=== PATIENT | male | born 1945 | race Caucasian/White ===

== ENCOUNTER → 2017-11-29 13:11 | Outpatient (CLI) | payer MEDICARE | END | disposition home or self-care (01) | LOC: D.RT 11-23 09:00 → D.RAD 11-23 10:00 → D.RT 13:11 | DX: J44.9 Chronic obstructive pulmonary disease, unspecified (principal) ==

== ENCOUNTER 2018-09-12 12:51 | Inpatient (IN) | payer MEDICARE, OTHER ==
[~2018-09-12] VITALS: Ht 165.1 cm; Wt 58.2 kg
[2018-09-12] VITALS (40 sets, daily range): BP systolic 89–139; BP diastolic 55–94
--- NOTE | ~2018-09-12 | MORECARE ---
CASE MANAGEMENT DISCHARGE SUMMARY PATIENT: KRISTIN CANELA UNIT: [id number] ADM DATE: 09/12/18 AGE: 73 : 46 SEX: M ROOM/BED: D.2065 AUTHOR: HANNY,DOC PHYSICIAN: REFERRING PHYSICIAN: TESHA MCDONOUGH MD DATE OF SERVICE: 09/23/18 Discharge Plan Patient Name: KRISTIN CANELA Facility: [facility]:[place] : 1945 Planned Disposition: Home Anticipated Discharge Date: Discharge Date: Expected LOS: Initial Reviewer: [id number] Initial Review Date: 09/12/2018 Generated: 09/23/18 11:28 am Comments DCP- Discharge Planning Updated by [email or web address]: Abad Mckay on 09/23/18 9:[address] Patient Name: KRISTIN CANELA Encounter No: [id number] : 1945 Primary Insurance: [employer] Anticipated DC Date: Planned Disposition: [facility] TRANSFER External Planned Provider: [facility] DISCHARGE PLANNING NOTE: CM REVIEWED CHART WHICH INDICATES PT IS [facility] PT, THERE ARE NOT NOTES THAT THE HOSPITAL HAS NOTIFIED THE [place] TO PLACE PT ON TRANSFER LIST. CM MET WITH PT IN ROOM TO DISCUSS DISCHARGE PLANNING AND NEEDS. PT REPORTS LIVING AT HOME INDEPENDENTLY WITH HIS EX WHO IS THERE "MOST OF THE TIME". PT HAS HOME AND PORTABLE OXGYEN AND MANUAL WHEELCHAIR FROM THE [place]. PT HAS NO OUTSIDE SERVICES ASSISTING IN THE HOME. CM DISCUSSED AVAILABILITY OF HOME HEALTH, REHAB SERVICES AND MEDICAL EQUIPMENT. PT DENIES DISCHARGE NEEDS, PLANS TO RETURN HOME WITH EX ; PT REPORTS IF HE NEEDS ASSISTANCE, HIS DAUGHTER LIVES ABOUT 3 1/2 MILES AWAY FROM HIS HOME OUTSIDE [place]. PT REPORTS HIS FAMILY WILL PICK HIM UP FOR DISCHARGE HOME. PT DOES NOT KNOW IF HE IS ON THE TRANSFER LIST, REPORTS HE JUST NOW KNOWS HE IS IN A HOSPITAL. PT REPORTS HE DOES NOT KNOW WHY THIS IS HAPPENING, HE QUIT SMOKING 4 1/2 YEARS AGO AND DOES NOT DRINK ALCOHOL EITHER. PT IS WILLING FOR TRANSFER TO THE [place] [facility] IF NEEDED. CM CALLED [facility] [place], SPOKE TO SASKIA JONES AT [phone] WHO INFORMED CM THAT PT'S CALLED TO NOTIFY [place] OF PT'S ADMISSION BUT SHE HAS NO NOTES INDICATING THE HOSPITAL CALLED. PT PLACED ON TRANSFER LIST. [facility] ON [facility] AND [facility] CONTACT [facility] 2 IF BED BECOMES AVAILABLE AT [place]. IF PT BECOMES STABLE FOR DISCHARGE PRIOR TO VA ACCEPTANCE, PT PLANS TO DISCHARGE HOME WITH FAMILY ASSISTANCE. CM TO CONTINUE TO FOLLOW AND ASSIST NEEDED. Abad Mckay, CASE MANAGEMENT DCPIA - Discharge Planning Initial Assessment Updated by [email or web address]: Abad Mckay on 09/23/18 10:11 am * Is the patient Alert and Oriented? Yes * How many steps to enter\\exit or inside your home? NONE * PCP [facility] [place] * Pharmacy [place] [facility] ORDER REPORTS NO LOCAL PHARMACY USE * Preadmission Environment Home with Family * ADLs Independent * Equipment Oxygen Wheelchair * Other Equipment [employer] - MEDICAL EQUIPMENT PROVIDER * List name and contact numbers for known caregivers / representatives who currently or will assist patient after discharge: ARIADNA CANELA, EX SPOUSE, LENNY CANELA, DTR, * Verbal permission to speak to the caregivers and representatives has been obtained from the patient. Yes * Community resources currently utilized None * Please name any agencies selected above. NONE * Additional services required to return to the preadmission environment? No * Can the patient safely return to the preadmission environment? Yes * Has this patient been hospitalized within the prior 30 days at any hospital? No Last DP export: 09/23/18 9:13 Patient Name: KRISTIN CANELA Page 50889 at 1028 All edits/amendments must be made on the electronic document DICTATION DATE: 09/23/18 1028 TUNNEL MINER: KOFFI 09/23/18 1028 RPT#: [id number] DC DATE: STATUS: ADM IN [facility] [address] [place] [address] END OF REPORT
--- NOTE | ~2018-09-12 | EC ---
PATIENT:KRISTIN CANELA DATE OF SERVICE: 09/12/18 SEX: M MEDICAL RECORD: [id number] DATE OF : [birth year] LOCATION:[facility] AGE OF PATIENT: 72 ADMISSION DATE: 09/12/18 REFERRING PHYSICIAN: INTERPRETING PHYSICIAN: SADA GRANT MD ECHOCARDIOGRAM REPORT ECHO CHARGES 5 ECHO LIMITED Date: 09/13/18 CLINICAL DIAGNOSIS: RESP DISTRESS, ASSESS EF ECHOCARDIOGRAPHIC MEASUREMENTS (adult normal given) AC root (d.<3.7cm) cm LV Septum d (<1.2 cm> cm Valve Excursion cm LV Septum (systole) cm Left Atria (s.<4.0cm> cm LVPW d(<1.2cm) cm RV (d.<2.3cm) cm LVPW (sytole) cm LV diastole(<5.6CM) 5.0 cm MV E-F(>70mm/sec) cm LV systole 3.0 cm LVOT Diameter cm MV exc.(>10mm) cm Est.ejection fraction (50-75%) % DOPPLER: LVIT cm/sec A cm/sec E cm/sec LA cm/sec RVSP 18 mmHg LVOT cm/sec AOP1/2T m/s Asc. Ao cm/sec RVOT cm/sec RA cm/sec PA cm/sec AV Gradient Peak mmHg AV Mean mmHg AV Area cm MV Gradient Peak mmHg MV Mean mmHg MV Area cm COMMENTS: Counseling Program Leader: Catrina ZHENG Hearing Therapy Director: 1 Dr. Grant TAPE# PACS Pericardial Effusion N DATE OF SERVICE: 09/13/2018 PROCEDURE: Limited echo for ejection fraction. FINDINGS: Left ventricular chamber size is within normal limits. Left ventricular systolic function is normal. Overall ejection fraction estimated at 60%. TRANSINT:[id number] Voice Confirmation ID: [id number] DOCUMENT ID: [id number] ECHOCARDIOGRAM REPORT [id number] HILTONSADA JACOBSON MD at 1059 CC: [id number] DICTATION DATE: 09/13/18 1241 ARTILLERY OFFICER: 09/13/18 1248 [place] [address]
--- NOTE | ~2018-09-12 | MORECARE ---
CASE MANAGEMENT DISCHARGE SUMMARY PATIENT: KRISTIN CANELA UNIT: [id number] ADM DATE: 09/12/18 AGE: 73 : 47 SEX: M ROOM/BED: D.2139 AUTHOR: CHIKI GAMINO PHYSICIAN: REFERRING PHYSICIAN: TESHA MCDONOUGH MD DATE OF SERVICE: 09/23/18 Discharge Plan Patient Name: KRISTIN CANELA [facility] [facility] 1945 Planned Disposition: Home Anticipated Discharge Date: Discharge Date: Expected LOS: Initial Reviewer: [email or web address] Initial Review Date: 09/12/2018 Generated: 09/23/18 11:13 am DCPIA - Discharge Planning Initial Assessment Updated by [email or web address]: Abad Mckay on 09/23/18 10:11 am * Is the patient Alert and Oriented? Yes * How many steps to enter\exit or inside your home? NONE * PCP [facility] [place] * Pharmacy [place] REPOR[place] NO LOCAL PHARMACY USE * Preadmission Environment Home with Family * ADLs Independent * Equipment Oxygen Wheelchair * Other Equipment [employer] - MEDICAL EQUIPMENT PROVIDER * List name and contact numbers for known caregivers / representatives who currently or will assist patient after discharge: ARIADNA CANELA, EX SPOUSE, LENNY HILTON, DTR, * Verbal permission to speak to the caregivers and representatives has been obtained from the patient. Yes * Community resources currently utilized None * Please name any agencies selected above. NONE * Additional services required to return to the preadmission environment? No * Can the patient safely return to the preadmission environment? Yes * Has this patient been hospitalized within the prior 30 days at any hospital? No Last DP export: 09/23/18 9:00 Patient Name: KRISTIN CANELA Page 62131 at 1013 All edits/amendments must be made on the electronic document DICTATION DATE: 09/23/18 1013 SR. SOCIAL MEDIA & MOBILE MANAGER: KOFFI 09/23/18 1013 RPT#: [id number] DC DATE: STATUS: ADM IN [facility] [address] [place] [address] END OF REPORT
--- NOTE | ~2018-09-12 | HEMODYNAMI ---
PATIENT:KRISTIN CANELA MEDICAL RECORD: [id number] : [birth year] LOCATION:[facility] D.231 ADMISSION DATE: 09/12/18 Generatedon:09/13/201814:59 Patient name: KRISTIN CANELA Patient #: [id number] SSN: : 1945 Date of study: 09/13/2018 Page: Of Hemodynamic Procedure Report Patient Data Patient Demographics Procedure consent was obtained First Name: KRISTIN Gender: Male Last Name: HILTON : 1945 Patient #: [id number] Age: 72 year(s) Race: Unknown Additional ID: [id number] Contact details Address: [address] [place] [address] [address] State: [place] City: [place] Zip code: [address] Admission Admission Data Admission Date: 09/12/2018 Admission Time: 14:50 Room #: .[facility] [place] [facility] [place] Procedure Procedure Types Cath Procedure Peripheral Cath Diagnostic Procedure Miscellaneous Procedure Description Procedure Date Procedure Date: 09/13/2018 Procedure Start Time: 14:35 Procedure Staff Name Function Betrin Barger MD Performing Physician Ruben Suh RT Monitor Katelyn Kellogg RN Nurse Procedure Data Cath Procedure Fluoroscopy Diagnostic fluoroscopy Total fluoroscopy Time: 6.2 time: 6.2 min min Diagnostic fluoroscopy Total fluoroscopy dose: 95 dose: 95 mGy mGy Hemodynamics Rest Pre Cath Intra NCS Post Cath Procedure Log Time Note 14:10:48 Ruben Suh RT (R) (CV) sent for patient. Start room use. 14:11:08 Patient received from ICU to IR On ventilator. Tansferred to table in Supine position. 14:11:10 Correct patient and procedure confirmed by team. 14:11:13 Signed procedure consent form obtained from guardian. 14:32:02 Physician arrived 14:32:04 --------ALL STOP TIME OUT------ 14:32:21 Sedation plan: None Medication 14:35:02 Procedure started. 14:35:03 Full Disclosure recording started 14:45:56 GLIDE WIRE ANGLE 180cm ([id number]) opened to sterile field. 14:46:19 GLIDE WIRE Angled Super Stiff 180cm ([id number]) opened to sterile field. 14:58:21 Procedure ended.(Physican Out) 14:58:38 Fluoroscopy time 06.20 minutes. 14:58:44 Fluoroscopy dose: 95 mGy 14:58:44 Flurop Dose total: 95 14:59:02 Report given to ICU. 14:59:07 Patient transfered to ICU with Bed. Device Usage Item Manufacture Quantity Catalog Hospital Part Current Minimal Lot# / Name Number Charge Number Stock Stock Serial# Code GLIDE Terumo 1 [id number] WIRE ANGLE 180cm ([id number]) GLIDE Terumo 1 [id number] WIRE Angled Super Stiff 180cm ([id number]) Signature Audit [place] Stage Time Signature Unsigned Intra-Procedure 09/13/2018 Ruben 2:59:39 PM Vikash RT (R) (CV) Signatures Monitor : Ruben Signature : Vikash RT Date : Time : [address] [place] [address]
--- NOTE | ~2018-09-12 | MORECARE ---
CASE MANAGEMENT DISCHARGE SUMMARY PATIENT: KRISTIN CANELA UNIT: [id number] ADM DATE: 09/12/18 AGE: 73 : 46 SEX: M ROOM/BED: D.7325 AUTHOR: HANNYDOC PHYSICIAN: REFERRING PHYSICIAN: TESHA MCDONOUGH MD DATE OF SERVICE: 09/28/18 Discharge Plan Patient Name: KRISTIN CANELA Facility: [facility]:[place] : 1945 Planned Disposition: Home Anticipated Discharge Date: 09/28/18 Discharge Date: Expected LOS: 16 Initial Reviewer: [email or web address] Initial Review Date: 09/12/2018 Generated: 09/28/18 5:05 pm Comments DCP- Discharge Planning Updated by [email or web address]: Abad Mckay on 09/28/18 3:[address] Patient Name: KRISTIN CANELA Encounter No: [id number] : 1945 Primary Insurance: [employer] Anticipated DC Date: 09-28-2018 Planned Disposition: Home DCP follow-up note: CM RECEIVED MESSAGE FROM BEDSIDE NURSE THAT PT IS REFUSING TO DISCHARGE AND INFORMED THE DOCTOR THAT HE WANTS REHAB BEFORE GOING HOME. CM CALLED [facility], , WHICH RANG TO [facility] [place]. CM PROVIDED REQUEST FOR REHAB SERVICES, NOTIFIED [place] THAT PT NO LONGER NEEDED MEDICAL BED HE IS STABLE FOR TRANSFER. MASTER ELECTRICIAN INFORMED CM THAT SHE SENT A MESSAGE TO THE NURSE AT [facility] WITH REHAB REQUEST. CM MET WITH PT IN ROOM, NOTIFIED OF ABOVE. PT STATES HE IS NOT GOING TO [place] FOR REHAB SERVICES WITH [place] AND THAT HE WANTS TO GO HOME BUT NOT TONIGHT. CM EXPLAINED THAT CM IS NOT SURE WHERE THE SERVICES FOR REHAB WOULD BE PROVIDED AND THAT CM IS WAITING FOR CALL FROM THE REHAB. PT [facility]. PT NOT ABLE TO GIVE CM REASON OTHER THAN HE JUST DOESN'T FEEL GOOD AND STATES AGAIN HE IS NOT GOING TO REHAB IN [place] AND WILL GO HOME TOMORROW. PT REPORTS HIS WILL PICK HIM UP TOMORROW AND HE DOES NOT WANT CM TO TELL HER THAT HE REFUSED TO GO TO [place]. PT REFUSES REHAB SERVICES PROVIDED BY [place] IN [place], STATES HE WILL GO HOME TOMORROW, 09-29-18 AND THAT HIS WILL PICK HIM UP. STEPH Urias MANAGEMENT DCP- Discharge Planning Updated by [id number]: Abad Mckay on 09/23/18 9:[address] Patient Name: KRISTIN CANELA Encounter No: [id number] : 1945 Primary Insurance: [employer] Anticipated DC Date: Planned Disposition: ACUTE CARE HOSPITAL TRANSFER External Planned Provider: [facility] DISCHARGE PLANNING NOTE: CM REVIEWED CHART WHICH INDICATES PT IS [facility] PT, THERE ARE NOT NOTES THAT THE HOSPITAL HAS NOTIFIED THE [facility] TO PLACE PT ON TRANSFER LIST. CM MET WITH PT IN ROOM TO DISCUSS DISCHARGE PLANNING AND NEEDS. PT REPORTS LIVING AT HOME INDEPENDENTLY WITH HIS EX WHO IS THERE "MOST OF THE TIME". PT HAS HOME AND PORTABLE OXGYEN AND MANUAL WHEELCHAIR FROM THE [place]. PT HAS NO OUTSIDE SERVICES ASSISTING IN THE HOME. CM DISCUSSED AVAILABILITY OF HOME HEALTH, REHAB SERVICES AND MEDICAL EQUIPMENT. PT DENIES DISCHARGE NEEDS, PLANS TO RETURN HOME WITH EX ; PT REPORTS IF HE NEEDS ASSISTANCE, HIS DAUGHTER LIVES ABOUT 3 1/2 MILES AWAY FROM HIS HOME OUTSIDE [place]. PT REPORTS HIS FAMILY WILL PICK HIM UP FOR DISCHARGE HOME. PT DOES NOT KNOW IF HE IS ON THE TRANSFER LIST, REPORTS HE JUST NOW KNOWS HE IS IN A HOSPITAL. PT REPORTS HE DOES NOT KNOW WHY THIS IS HAPPENING, HE QUIT SMOKING 4 1/2 YEARS AGO AND DOES NOT DRINK ALCOHOL EITHER. PT IS WILLING FOR TRANSFER TO THE [place] [facility] IF NEEDED. CM CALLED [facility] [place], SPOKE TO EXPEDRODRICK JONES AT [phone] WHO INFORMED CM THAT PT'S CALLED TO NOTIFY [place] OF PT'S ADMISSION BUT SHE HAS NO NOTES INDICATING THE HOSPITAL CALLED. PT PLACED ON TRANSFER LIST. PT ON [place] TRANSFER LIST AND [facility]CT [facility] 2 IF BED BECOMES AVAILABLE AT [place]. IF PT BECOMES STABLE FOR DISCHARGE PRIOR TO VA ACCEPTANCE, PT PLANS TO DISCHARGE HOME WITH FAMILY ASSISTANCE. CM TO CONTINUE TO FOLLOW AND ASSIST NEEDED. STEPH Urias DCPIA - Discharge Planning Initial Assessment Updated by [id number]: Abad Mckay on 09/23/18 10:11 am * Is the patient Alert and Oriented? Yes * How many steps to enter\\exit or inside your home? NONE * PCP [facility] IN [place] * Pharmacy [place] ORDER REPOR[place] NO LOCAL PHARMACY USE * Preadmission Environment Home with Family * ADLs Independent * Equipment Oxygen Wheelchair * Other Equipment [employer] - MEDICAL EQUIPMENT PROVIDER * List name and contact numbers for known caregivers / representatives who currently or will assist patient after discharge: ARIADNA CANELA, EX SPOUSE, LENNY CANELA, DTR, * Verbal permission to speak to the caregivers and representatives has been obtained from the patient. Yes * Community resources currently utilized None * Please name any agencies selected above. NONE * Additional services required to return to the preadmission environment? No * Can the patient safely return to the preadmission environment? Yes * Has this patient been hospitalized within the prior 30 days at any hospital? No External Providers External Provider: OTHER-OTHER Next Contact Date: 09/28/2018 Service Request Date: Service Type: Resolution: Reviewer: Comments: Last DP export: 09/23/18 9:28 Patient Name: KRISTIN CANELA Page 56146 at 1605 All edits/amendments must be made on the electronic document DICTATION DATE: 09/28/18 1605 COMMERCIAL CONSTRUCTION PROJECT MANAGER: KOFFI 09/28/18 1605 RPT#: [id number] DC DATE: STATUS: ADM IN [facility] [address] [place] [address] END OF REPORT
--- NOTE | ~2018-09-12 | OP ---
PATIENT NAME: KRISTIN CANELA MEDICAL RECORD: [id number] :47 LOCATION:D.M2 D.2139 ADMISSION DATE:09/12/18 SURGEON: JESSI BO MD DATE OF OPERATION: 09/18/2018 PREOPERATIVE DIAGNOSES: 1. Need for IV access. 2. Ocrjs-em-gzkwvpe respiratory failure, on the ventilator. 3. COPD exacerbation. POSTOPERATIVE DIAGNOSES: 1. Need for IV access. 2. Mdmne-sq-zxwhnfy respiratory failure, on the ventilator. 3. COPD exacerbation. PROCEDURE: Right subclavian vein triple-lumen central venous line placement. SURGEON: Jessi Bo MD REPORT OF PROCEDURE: The patient's right chest was prepped and draped in sterile fashion. A total of 5 cc of 1% lidocaine was infused into the subcutaneous tissues. A needle was used to cannulate the right subclavian vein and a guidewire was advanced with ease. Over this wire, dilator was placed followed by the triple lumen catheter. The catheter aspirated nonpulsatile dark blood and flushed easily in all 3 ports. This was sutured into place with 3-0 silk ties and dressed appropriately. COMPLICATIONS: None. CONDITION: Stable. ANESTHESIA: General endotracheal and local. BLOOD LOSS: Minimal. Procedure done in the ICU at the bedside. TRANSINT:[id number] Voice Confirmation ID: [id number] DOCUMENT ID: [id number] JESSI BO MD at 1219 CC: [id number] DICTATION DATE: 09/18/18 1141 NETWORK CONTROL SUPERVISOR: 09/18/18 1245 ADM IN [facility] [id number] [place] [address]
--- NOTE | ~2018-09-12 | MORECARE ---
CASE MANAGEMENT DISCHARGE SUMMARY PATIENT: KRISTIN CANELA UNIT: [id number] ADM DATE: 09/12/18 AGE: 73 : 46 SEX: M ROOM/BED: D.2139 AUTHOR: CHIKI GAMINO PHYSICIAN: REFERRING PHYSICIAN: TESHA MCDONOUGH MD DATE OF SERVICE: 09/23/18 Discharge Plan Patient Name: KRISTIN CANELA [facility] [facility] 1945 Planned Disposition: Home Anticipated Discharge Date: Discharge Date: Expected LOS: Initial Reviewer: [email or web address] Initial Review Date: 09/12/2018 Generated: 09/23/18 11:00 am Patient Name: KRISTIN CANELA Page 26149 at 1000 All edits/amendments must be made on the electronic document DICTATION DATE: 09/23/18 1000 SVP GROUP DIRECTOR: KOFFI 09/23/18 1000 RPT#: [id number] DC DATE: STATUS: ADM IN [facility] [address] [place] [address] END OF REPORT
--- NOTE | ~2018-09-12 | MORECARE ---
CASE MANAGEMENT DISCHARGE SUMMARY PATIENT: KRISTIN CANELA UNIT: [id number] ADM DATE: 09/12/18 AGE: 73 : 47 SEX: M ROOM/BED: D.6871 AUTHOR: HANNYDOC PHYSICIAN: REFERRING PHYSICIAN: TESHA MCDONOUGH MD DATE OF SERVICE: 09/30/18 Discharge Plan Patient Name: KRISTIN CANELA Facility: [facility]:[place] : 1945 Planned Disposition: Home Anticipated Discharge Date: 09/30/18 Discharge Date: Expected LOS: 18 Initial Reviewer: [email or web address] Initial Review Date: 09/12/2018 Generated: 09/30/18 3:34 pm Comments DCP- Discharge Planning Updated by [email or web address]: Abad Mckay on 09/28/18 3:[address] Patient Name: KRISTIN CANELA Encounter No: [id number] : 1945 Primary Insurance: [employer] Anticipated DC Date: 09-28-2018 Planned Disposition: Home DCP follow-up note: CM RECEIVED MESSAGE FROM BEDSIDE NURSE THAT PT IS REFUSING TO DISCHARGE AND INFORMED THE DOCTOR THAT HE WANTS REHAB BEFORE GOING HOME. CM CALLED [facility], , WHICH R[facility] [place]. CM PROVIDED REQUEST FOR REHAB SERVICES, NOTIFIED [place] THAT PT NO LONGER NEEDED MEDICAL BED HE IS STABLE FOR TRANSFER. MEDICARE SPECIALIST INFORMED CM THAT SHE SENT A MESSAGE TO THE NURSE AT [facility] WITH REHAB REQUEST. CM MET WITH PT IN ROOM, NOTIFIED OF ABOVE. PT STATES HE IS NOT GOING TO [place] FOR REHAB SERVICES WITH [place] AND THAT HE WANTS TO GO HOME BUT NOT TONIGHT. CM EXPLAINED THAT CM IS NOT SURE WHERE THE SERVICES FOR REHAB WOULD BE PROVIDED AND THAT CM IS WAITING FOR CALL FROM THE REHAB. PT [facility]. PT NOT ABLE TO GIVE CM REASON OTHER THAN HE JUST DOESN'T FEEL GOOD AND STATES AGAIN HE IS NOT GOING TO REHAB IN [place] AND WILL GO HOME TOMORROW. PT REPORTS HIS WILL PICK HIM UP TOMORROW AND HE DOES NOT WANT CM TO TELL HER THAT HE REFUSED TO GO TO [place]. PT REFUSES REHAB SERVICES PROVIDED BY [place], STATES HE WILL GO HOME TOMORROW, 09-29-18 AND THAT HIS WILL PICK HIM UP. Abad Mckay, CASE MANAGEMENT Appended by Abad Mckay on 09/28/2018 16:18 AUDIO VIDEO TECHNICIAN: CM FAXED PT'S TREATMENT INFORMATION WITH [facility] INFORMATION TO [facility] [place], . STEPH COBIAN DCP- Discharge Planning Updated by [id number]: Abad Mckay on 09/23/18 9:[address] Patient Name: KRISTIN CANELA Encounter No: [id number] : 1945 Primary Insurance: [employer] Anticipated DC Date: Planned Disposition: ACUTE CARE [facility]PITAL TRANSFER External Planned Provider: [facility] DISCHARGE PLANNING NOTE: CM REVIEWED CHART WHICH INDICATES PT IS [facility] PT, THERE ARE NOT NOTES THAT THE HOSPITAL HAS NOTIFIED THE [facility] TO PLACE PT ON TRANSFER LIST. CM MET WITH PT IN ROOM TO DISCUSS DISCHARGE PLANNING AND NEEDS. PT REPORTS LIVING AT HOME INDEPENDENTLY WITH HIS EX WHO IS THERE "MOST OF THE TIME". PT HAS HOME AND PORTABLE OXGYEN AND MANUAL WHEELCHAIR FROM THE [place]. PT HAS NO OUTSIDE SERVICES ASSISTING IN THE HOME. CM DISCUSSED AVAILABILITY OF HOME HEALTH, REHAB SERVICES AND MEDICAL EQUIPMENT. PT DENIES DISCHARGE NEEDS, PLANS TO RETURN HOME WITH EX ; PT REPORTS IF HE NEEDS ASSISTANCE, HIS DAUGHTER LIVES ABOUT 3 1/2 MILES AWAY FROM HIS HOME [place]SIDE [place]. PT REPORTS HIS FAMILY WILL PICK HIM UP FOR DISCHARGE HOME. PT DOES NOT KNOW IF HE IS ON THE TRANSFER LIST, REPORTS HE JUST NOW KNOWS HE IS IN A HOSPITAL. PT REPORTS HE DOES NOT KNOW WHY THIS IS HAPPENING, HE QUIT SMOKING 4 1/2 YEARS AGO AND DOES NOT DRINK ALCOHOL EITHER. PT IS WILLING FOR TRANSFER TO THE [place] [facility] IF NEEDED. CM CALLED [facility] [place], SPOKE TO EXPEDRODRICK JONES AT [phone] WHO INFORMED CM THAT PT'S CALLED TO NOTIFY [facility] OF PT'S ADMISSION BUT SHE HAS NO NOTES INDICATING THE HOSPITAL CALLED. PT PLACED ON TRANSFER LIST. PT ON [facility] TRANSFER LIST AND [facility] 2 IF BED BECOMES AVAILABLE AT [place]. IF PT BECOMES STABLE FOR DISCHARGE PRIOR TO VA ACCEPTANCE, PT PLANS TO DISCHARGE HOME WITH FAMILY ASSISTANCE. CM TO CONTINUE TO FOLLOW AND ASSIST NEEDED. STEPH Cobian DCPIA - Discharge Planning Initial Assessment Updated by [email or web address]: Abad Mckay on 09/23/18 10:11 am * Is the patient Alert and Oriented? Yes * How many steps to enter\\exit or inside your home? NONE * PCP [facility] [place] * Pharmacy [place] [facility] NO LOCAL PHARMACY USE * Preadmission Environment Home with Family * ADLs Independent * Equipment Oxygen Wheelchair * Other Equipment [employer] - MEDICAL EQUIPMENT PROVIDER * List name and contact numbers for known caregivers / representatives who currently or will assist patient after discharge: ARIADNA CANELA, EX SPOUSE, LENNY HILTON, DTR, * Verbal permission to speak to the caregivers and representatives has been obtained from the patient. Yes * Community resources currently utilized None * Please name any agencies selected above. NONE * Additional services required to return to the preadmission environment? No * Can the patient safely return to the preadmission environment? Yes * Has this patient been hospitalized within the prior 30 days at any hospital? No Last DP export: 09/28/18 3:20 Patient Name: KRISTIN CANELA Page 23766 at 1434 All edits/amendments must be made on the electronic document DICTATION DATE: 09/30/181433 BATTERY WRECKER OPERATOR: KOFFI 09/30/181433 RPT#: [id number] [place] DATE: STATUS: ADM IN [facility] [address] [place] [address] END OF REPORT
--- NOTE | ~2018-09-12 | MORECARE ---
CASE MANAGEMENT DISCHARGE SUMMARY PATIENT: KRISTIN CANELA UNIT: [id number] ADM DATE: 09/12/18 AGE: 73 : 47 SEX: M ROOM/BED: D.4336 AUTHOR: HANNY,DOC PHYSICIAN: REFERRING PHYSICIAN: TESHA MCDONOUGH MD DATE OF SERVICE: 09/30/18 Discharge Plan Patient Name: KRISTIN CANELA Facility: [facility]:[place] : 1945 Planned Disposition: Home Anticipated Discharge Date: 09/30/18 Discharge Date: Expected LOS: 18 Initial Reviewer: [id number] Initial Review Date: 09/12/2018 Generated: 09/30/18 3:46 pm Comments DCP- Discharge Planning Updated by [id number]: Abad Davalos on 09/30/18 1:[address] Patient Name: KRISTIN CANELA Encounter No: [id number] : 1945 Primary Insurance: [employer] Anticipated DC Date: 09-30-2018 Planned Disposition: Home DCP follow-up note: CM SPOKE TO MEGAN LUTZ AND RECEIVED DISCHARGE ORDER. CM SPOKE TO PT WHO INFORMED CM THAT HE IS NOT GOING TO [place] FOR REHAB AND WANTS TO GO HOME. PT REPORTS HIS WILL PICK HIM UP. PT WILL ACCEPT HOME SERVICES FROM [place] IF THEY WILL PROVIDE THEM. PT DENIES FURTHER NEEDS. CM RECEIVED CALL FROM [facility], SPOKE TO ARMANI HERNANDEZ WHO REPORTS THAT THEY CAN PROVIDE HOME HEALTH FOR 2X WEEK PHYSICAL THERAPY, MAXIMUM VISITS 12; THEY CAN PROVIDE AIDE TO ASSIST WITH BATH IF NEEDED AND SHE WILL CONTACT PT'S FAMILY TO FIND OUT IF THIS IS NEEDED. ARMANI HERNANDEZ INFORMED CM THAT PT IS NOT SERVICE CONNECTED AND WILL NOT QUALIFY FOR [facility] TO PAY FOR LONG-TERM FACILITY, PT COULD GO TO [place] FOR INPATIENT OR COME TO THE [facility] 1 X WEEKLY FOR THERAPY THERE IF NEEDED. CM EXPLAINED THAT PT WANTS HOME HEALTH. ARMANI HERNANDEZ ASKED CM REFAX RECORDS AND SHE WILL SUBMIT FOR HOME HEALTH; ARMANI HERNANDEZ WAS NOT ABLE TO TELL CM HOW LONG THIS PROCESS WILL TAKE TO MAKE HOME ARRANGEMENTS FOR THERAPY. CM REFAXED RECORDS WITH DISCHARGE INFORMATION TO [facility] AT [phone], ATTENTION TEAM 3 RN. PT NOTIFIED WHO DENIES FURHTER DISCHARGE NEEDS. CM CALLED ROBERT WITH [facility], , NOTIFIED OF PT'S DISCHARGE HOME. Abad Davalos CASE MANAGEMENT DCP- Discharge Planning Updated by [id number]: Abad Davalos on 09/28/18 3:[address] Patient Name: KRISTIN CANELA Encounter No: [id number] : 1945 Primary Insurance: [facility] ADMINISTRATION Anticipated DC Date: 09-28-2018 Planned Disposition: Home DCP follow-up note: CM RECEIVED MESSAGE FROM BEDSIDE NURSE THAT PT IS REFUSING TO DISCHARGE AND INFORMED THE DOCTOR THAT HE WANTS REHAB BEFORE GOING HOME. CM CALLED [facility], , [facility] [place]. CM PROVIDED REQUEST FOR REHAB SERVICES, NOTIFIED [facility] THAT PT NO LONGER NEEDED MEDICAL BED HE IS STABLE FOR TRANSFER. FIREFIGHTER MARINE INFORMED CM THAT SHE SENT A MESSAGE TO THE NURSE AT [facility] WITH REHAB REQUEST. CM MET WITH PT IN ROOM, NOTIFIED OF ABOVE. PT STATES HE IS NOT GOING TO [place] FOR REHAB SERVICES WITH [facility] AND THAT HE WANTS TO GO HOME BUT NOT TONIGHT. CM EXPLAINED THAT CM IS NOT SURE WHERE THE SERVICES FOR REHAB WOULD BE PROVIDED AND THAT CM IS WAITING FOR CALL FROM THE REHAB. [facility] PT NOT ABLE TO GIVE CM REASON OTHER THAN HE JUST DOESN'T FEEL GOOD AND STATES AGAIN HE IS NOT GOING TO REHAB IN [place] AND WILL GO HOME TOMORROW. PT REPORTS HIS WILL PICK HIM UP TOMORROW AND HE DOES NOT WANT CM TO TELL HER THAT HE REFUSED TO GO TO [place]. PT REFUSES REHAB SERVICES PROVIDED BY [facility] IN [place], STATES HE WILL GO HOME TOMORROW, 09-29-18 AND THAT HIS WILL PICK HIM UP. Abad Davalos, CASE MANAGEMENT Appended by Abad Davalos on 09/28/2018 16:18 VICTIM WITNESS ADMINISTRATOR: CM FAXED PT'S TREATMENT INFORMATION WITH DISCHARGE INFORMATION TO [facility], . ABAD DAVALOS, CASE MANAGEMENT DCP- Discharge Planning Updated by [id number]: Abad Davalso on 09/23/18 9:[address] Patient Name: KRISTIN CANELA Encounter No: [id number] : 1945 Primary Insurance: [employer] Anticipated DC Date: Planned Disposition: ACUTE CARE HOSPITAL TRANSFER External Planned Provider: [facility] DISCHARGE PLANNING NOTE: CM REVIEWED CHART WHICH INDICATES PT IS [facility]MIN[facility] PT, THERE ARE NOT NOTES THAT THE HOSPITAL HAS NOTIFIED THE VA TO PLACE PT ON TRANSFER LIST. CM MET WITH PT IN ROOM TO DISCUSS DISCHARGE PLANNING AND NEEDS. PT REPORTS LIVING AT HOME INDEPENDENTLY WITH HIS EX WHO IS THERE "MOST OF THE TIME". PT HAS HOME AND PORTABLE OXGYEN AND MANUAL WHEELCHAIR FROM [place]. PT HAS NO OUTSIDE SERVICES ASSISTING IN THE HOME. CM DISCUSSED AVAILABILITY OF HOME HEALTH, REHAB SERVICES AND MEDICAL EQUIPMENT. PT DENIES DISCHARGE NEEDS, PLANS TO RETURN HOME WITH EX ; PT REPORTS IF HE NEEDS ASSISTANCE, HIS DAUGHTER LIVES ABOUT 3 1/2 MILES AWAY FROM HIS HOME OUTSIDE [place]. PT REPORTS HIS FAMILY WILL PICK HIM UP FOR DISCHARGE HOME. PT DOES NOT KNOW IF HE IS ON THE TRANSFER LIST, REPORTS HE JUST NOW KNOWS HE IS IN A HOSPITAL. PT REPORTS HE DOES NOT KNOW WHY THIS IS HAPPENING, HE QUIT SMOKING 4 1/2 YEARS AGO AND DOES NOT DRINK ALCOHOL EITHER. PT IS WILLING FOR TRANSFER TO THE [facility] IF NEEDED. CM CALLED [facility] [place], SPOKE TO SASKIA JONES AT [phone] WHO INFORMED CM THAT PT'S CALLED TO NOTIFY [facility] OF PT'S ADMISSION BUT SHE HAS NO NOTES INDICATING THE HOSPITAL CALLED. PT PLACED ON TRANSFER LIST. PT ON VA TRANSFER LIST AND VA WILL CON[facility]CT [facility] 2 IF BED BECOMES AVAILABLE AT [facility]. IF PT BECOMES STABLE FOR DISCHARGE PRIOR TO VA ACCEPTANCE, PT PLANS TO DISCHARGE HOME WITH FAMILY ASSISTANCE. CM TO CONTINUE TO FOLLOW AND ASSIST NEEDED. Abad Davalos, CASE MANAGEMENT DCPIA - Discharge Planning Initial Assessment Updated by [id number]: Abad Davalos on 09/23/18 10:11 am * Is the patient Alert and Oriented? Yes * How many steps to enter\\exit or inside your home? NONE * PCP [facility] [place] * [facility]acy [facility] RE[facility] NO LOCAL PHARMACY USE * Preadmission Environment Home with Family * ADLs Independent * Equipment Oxygen Wheelchair * Other Equipment [employer] - MEDICAL EQUIPMENT PROVIDER * List name and contact numbers for known caregivers / representatives who currently or will assist patient after discharge: ARIADNA MELGOZAGus, EX SPOUSE, LENNY CANELA, DTR, * Verbal permission to speak to the caregivers and representatives has been obtained from the patient. Yes * Community resources currently utilized None * Please name any agencies selected above. NONE * Additional services required to return to the preadmission environment? No * Can the patient safely return to the preadmission environment? Yes * Has this patient been hospitalized within the prior 30 days at any hospital? No Last DP export: 09/30/18 1:34 Patient Name: KRISTIN CANELA Page [id number] at 1446 All edits/amendments must be made on the electronic document DICTATION DATE: 09/30/181445 HOUSE PIPING INSPECTOR: KOFFI 09/30/18 1446 RPT#: [id number] [place] DATE: STATUS: ADM IN [facility] [address] [place] [address] END OF REPORT
--- NOTE | ~2018-09-12 | MORECARE ---
CASE MANAGEMENT DISCHARGE SUMMARY PATIENT: KRISTIN CANELA UNIT: [id number] ADM DATE: 09/12/18 AGE: 73 : 47 SEX: M ROOM/BED: D.8105 AUTHOR: HANNYDOC PHYSICIAN: REFERRING PHYSICIAN: TESHA MCDONOUGH MD DATE OF SERVICE: 09/30/18 Discharge Plan Patient Name: KRISTIN CANELA Facility: [facility]:[place] : 1945 Planned Disposition: Home Anticipated Discharge Date: 09/30/18 Discharge Date: Expected LOS: 18 Initial Reviewer: [id number] Initial Review Date: 09/12/2018 Generated: 09/30/18 3:26 pm Comments DCP- Discharge Planning Updated by [id number]: Abad Mckay on 09/28/18 3:[address] Patient Name: KRISTIN CANELA Encounter No: [id number] : 1945 Primary Insurance: [employer] Anticipated DC Date: 09-28-2018 Planned Disposition: Home DCP follow-up note: CM RECEIVED MESSAGE FROM BEDSIDE NURSE THAT PT IS REFUSING TO DISCHARGE AND INFORMED THE DOCTOR THAT HE WANTS REHAB BEFORE GOING HOME. CM CALLED [facility], , WHICH R[facility] [place]. CM PROVIDED REQUEST FOR REHAB SERVICES, NOTIFIED [facility] THAT PT NO LONGER NEEDED MEDICAL BED HE IS STABLE FOR TRANSFER. HUMAN RESOURCES TRAINEE INFORMED CM THAT SHE SENT A MESSAGE TO THE NURSE AT [facility] AND [facility] WITH REHAB REQUEST. CM MET WITH PT IN ROOM, NOTIFIED OF ABOVE. PT STATES HE IS NOT GOING TO [place] FOR REHAB SERVICES WITH [facility] AND THAT HE WANTS TO GO HOME BUT NOT TONIGHT. CM EXPLAINED THAT CM IS NOT SURE WHERE THE SERVICES FOR REHAB WOULD BE PROVIDED AND THAT CM IS WAITING FOR CALL FROM THE REHAB. PT [facility]. PT NOT ABLE TO GIVE CM REASON OTHER THAN HE JUST DOESN'T FEEL GOOD AND STATES AGAIN HE IS NOT GOING TO REHAB IN [place] AND WILL GO HOME TOMORROW. PT REPORTS HIS WILL PICK HIM UP TOMORROW AND HE DOES NOT WANT CM TO TELL HER THAT HE REFUSED TO GO TO [place]. PT REFUSES REHAB SERVICES PROVIDED BY [facility] [place], STATES HE WILL GO HOME TOMORROW, 09-29-18 AND THAT HIS WILL PICK HIM UP. Abad Mckay, CASE MANAGEMENT Appended by Abad Mckay on 09/28/2018 16:18 MANAGER PROCESS EXCELLENCE: CM FAXED PT'S TREATMENT INFORMATION WITH DISCHARGE INFORMATION TO [facility], [place], . STEPH COBIAN DCP- Discharge Planning Updated by [id number]: Abad Mckay on 09/23/18 9:[address] Patient Name: KRISTIN CANELA Encounter No: [id number] : 1945 Primary Insurance: [employer] Anticipated DC Date: Planned Disposition: ACUTE CARE HOSPITAL TRANSFER External Planned Provider: [facility] DISCHARGE PLANNING NOTE: CM REVIEWED CHART WHICH INDICATES PT IS [facility] PT, THERE ARE NOT NOTES THAT THE HOSPITAL HAS NOTIFIED THE VA TO PLACE PT ON TRANSFER LIST. CM MET WITH PT IN ROOM TO DISCUSS DISCHARGE PLANNING AND NEEDS. PT REPORTS LIVING AT HOME INDEPENDENTLY WITH HIS EX WHO IS THERE "MOST OF THE TIME". PT HAS HOME AND PORTABLE OXGYEN AND MANUAL WHEELCHAIR FROM THE [place]. PT HAS NO OUTSIDE SERVICES ASSISTING IN THE HOME. CM DISCUSSED AVAILABILITY OF HOME HEALTH, REHAB SERVICES AND MEDICAL EQUIPMENT. PT DENIES DISCHARGE NEEDS, PLANS TO RETURN HOME WITH EX ; PT REPORTS IF HE NEEDS ASSISTANCE, HIS DAUGHTER LIVES ABOUT 3 1/2 MILES AWAY FROM HIS HOME OUTSIDE [place]. PT REPORTS HIS FAMILY WILL PICK HIM UP FOR DISCHARGE HOME. PT DOES NOT KNOW IF HE IS ON THE TRANSFER LIST, REPORTS HE JUST NOW KNOWS HE IS IN A HOSPITAL. PT REPORTS HE DOES NOT KNOW WHY THIS IS HAPPENING, HE QUIT SMOKING 4 1/2 YEARS AGO AND DOES NOT DRINK ALCOHOL EITHER. PT IS WILLING FOR TRANSFER TO THE [facility] IF NEEDED. CM CALLED [facility] [place], SPOKE TO EXPEDRODRICK JONES AT [phone] WHO INFORMED CM THAT PT'S CALLED TO NOTIFY [facility] OF PT'S ADMISSION BUT SHE HAS NO NOTES INDICATING THE HOSPITAL CALLED. PT PLACED ON TRANSFER LIST. PT ON VA TRANSFER LIST AND VA WILL CONTACT [facility] 2 IF BED BECOMES AVAILABLE AT [facility]. IF PT BECOMES STABLE FOR DISCHARGE PRIOR TO VA ACCEPTANCE, PT PLANS TO DISCHARGE HOME WITH FAMILY ASSISTANCE. CM TO CONTINUE TO FOLLOW AND ASSIST NEEDED. STEPH Cobian DCPIA - Discharge Planning Initial Assessment Updated by [id number]: Abad Mckay on 09/23/18 10:11 am * Is the patient Alert and Oriented? Yes * How many steps to enter\\exit or inside your home? NONE * PCP [facility] [place] * Pharmacy [facility] RE[facility] NO LOCAL PHARMACY USE * Preadmission Environment Home with Family * ADLs Independent * Equipment Oxygen Wheelchair * Other Equipment [employer] - MEDICAL EQUIPMENT PROVIDER * List name and contact numbers for known caregivers / representatives who currently or will assist patient after discharge: ARIADNA CANELA, EX SPOUSE, LENNY HILTON, DTR, * Verbal permission to speak to the caregivers and representatives has been obtained from the patient. Yes * Community resources currently utilized None * Please name any agencies selected above. NONE * Additional services required to return to the preadmission environment? No * Can the patient safely return to the preadmission environment? Yes * Has this patient been hospitalized within the prior 30 days at any hospital? No Last DP export: 09/28/18 3:20 Patient Name: KIRSTIN CANELA Page [id number] at 1426 All edits/amendments must be made on the electronic document DICTATION DATE: 09/30/181425 BUN ICER: KOFFI 09/30/181425 RPT#: [id number] [place] DATE: STATUS: ADM IN [facility] [address] [place] [address] END OF REPORT
--- NOTE | ~2018-09-12 | MORECARE ---
CASE MANAGEMENT DISCHARGE SUMMARY PATIENT: KRISTIN CANELA UNIT: [id number] ADM DATE: 09/12/18 AGE: 73 : 47 SEX: M ROOM/BED: D.9693 AUTHOR: HANNYDOC PHYSICIAN: REFERRING PHYSICIAN: TESHA MCDONOUGH MD DATE OF SERVICE: 09/28/18 Discharge Plan Patient Name: KRISTIN CANELA Facility: [facility]:[place] : 1945 Planned Disposition: Home Anticipated Discharge Date: 09/28/18 Discharge Date: Expected LOS: 16 Initial Reviewer: [id number] Initial Review Date: 09/12/2018 Generated: 09/28/18 5:20 pm Comments DCP- Discharge Planning Updated by [id number]: Abad Mckay on 09/28/18 3:[address] Patient Name: KRISTIN CANELA Encounter No: [id number] : 1945 Primary Insurance: [employer] Anticipated DC Date: 09-28-2018 Planned Disposition: Home DCP follow-up note: CM RECEIVED MESSAGE FROM BEDSIDE NURSE THAT PT IS REFUSING TO DISCHARGE AND INFORMED THE DOCTOR THAT HE WANTS REHAB BEFORE GOING HOME. CM CALLED [facility], , WHICH R[facility] [place]. CM PROVIDED REQUEST FOR REHAB SERVICES, NOTIFIED [facility] THAT PT NO LONGER NEEDED MEDICAL BED HE IS STABLE FOR TRANSFER. CORE JAVA ENGINEER INFORMED CM THAT SHE SENT A MESSAGE TO THE NURSE AT [facility] WITH REHAB REQUEST. CM MET WITH PT IN ROOM, NOTIFIED OF ABOVE. PT STATES HE IS NOT GOING TO [place] FOR REHAB SERVICES WITH [facility] AND THAT HE WANTS TO GO HOME BUT NOT TONIGHT. CM EXPLAINED THAT CM IS NOT SURE WHERE THE SERVICES FOR REHAB WOULD BE PROVIDED AND THAT CM IS WAITING FOR CALL FROM THE REHAB. PT [facility]. PT NOT ABLE TO GIVE CM REASON OTHER THAN HE JUST DOESN'T FEEL GOOD AND STATES AGAIN HE IS NOT GOING TO REHAB IN [place] AND WILL GO HOME TOMORROW. PT REPORTS HIS WILL PICK HIM UP TOMORROW AND HE DOES NOT WANT CM TO TELL HER THAT HE REFUSED TO GO TO [place]. PT REFUSES REHAB SERVICES PROVIDED BY [facility] IN [place], STATES HE WILL GO HOME TOMORROW, 09-29-18 AND THAT HIS WILL PICK HIM UP. Abad Mckay, CASE MANAGEMENT Appended by Abad Mckay on 09/28/2018 16:18 MAINFRAME SYSTEMS ADMINISTRATOR: CM FAXED PT'S TREATMENT INFORMATION WITH DISCHARGE INFORMATION TO [facility], [place], . STEPH COBIAN DCP- Discharge Planning Updated by [id number]: Abad Mckay on 09/23/18 9:[address] Patient Name: KRISTIN CANELA Encounter No: [id number] : 1945 Primary Insurance: [employer] Anticipated DC Date: Planned Disposition: ACUTE CARE HOSPITAL TRANSFER External Planned Provider: [facility] DISCHARGE PLANNING NOTE: CM REVIEWED CHART WHICH INDICATES PT IS [facility]MIN[facility] PT, THERE ARE NOT NOTES THAT THE HOSPITAL HAS NOTIFIED THE VA TO PLACE PT ON TRANSFER LIST. CM MET WITH PT IN ROOM TO DISCUSS DISCHARGE PLANNING AND NEEDS. PT REPORTS LIVING AT HOME INDEPENDENTLY WITH HIS EX WHO IS THERE "MOST OF THE TIME". PT HAS HOME AND PORTABLE OXGYEN AND MANUAL WHEELCHAIR FROM THE [place]. PT HAS NO OUTSIDE SERVICES ASSISTING IN THE HOME. CM DISCUSSED AVAILABILITY OF HOME HEALTH, REHAB SERVICES AND MEDICAL EQUIPMENT. PT DENIES DISCHARGE NEEDS, PLANS TO RETURN HOME WITH EX ; PT REPORTS IF HE NEEDS ASSISTANCE, HIS DAUGHTER LIVES ABOUT 3 1/2 MILES AWAY FROM HIS HOME OUTSIDE [place]. PT REPORTS HIS FAMILY WILL PICK HIM UP FOR DISCHARGE HOME. PT DOES NOT KNOW IF HE IS ON THE TRANSFER LIST, REPORTS HE JUST NOW KNOWS HE IS IN A HOSPITAL. PT REPORTS HE DOES NOT KNOW WHY THIS IS HAPPENING, HE QUIT SMOKING 4 1/2 YEARS AGO AND DOES NOT DRINK ALCOHOL EITHER. PT IS WILLING FOR TRANSFER TO THE [facility] IF NEEDED. CM CALLED [facility] [place], SPOKE TO EXPEDRODRICK JONES AT [phone] WHO INFORMED CM THAT PT'S CALLED TO NOTIFY [facility] OF PT'S ADMISSION BUT SHE HAS NO NOTES INDICATING THE HOSPITAL CALLED. PT PLACED ON TRANSFER LIST. PT ON VA TRANSFER LIST AND VA WILL CONTACT [facility] 2 IF BED BECOMES AVAILABLE AT [facility]. IF PT BECOMES STABLE FOR DISCHARGE PRIOR TO VA ACCEPTANCE, PT PLANS TO DISCHARGE HOME WITH FAMILY ASSISTANCE. CM TO CONTINUE TO FOLLOW AND ASSIST NEEDED. STEPH Cobian DCPIA - Discharge Planning Initial Assessment Updated by [id number]: Abad Mckay on 09/23/18 10:11 am * Is the patient Alert and Oriented? Yes * How many steps to enter\\exit or inside your home? NONE * PCP [facility] [place] * Pharmacy [facility] REPORTS NO LOCAL PHARMACY USE * Preadmission Environment Home with Family * ADLs Independent * Equipment Oxygen Wheelchair * Other Equipment [employer] - MEDICAL EQUIPMENT PROVIDER * List name and contact numbers for known caregivers / representatives who currently or will assist patient after discharge: ARIADNA CANELA, EX SPOUSE, LENNY HILTON, DTR, * Verbal permission to speak to the caregivers and representatives has been obtained from the patient. Yes * Community resources currently utilized None * Please name any agencies selected above. NONE * Additional services required to return to the preadmission environment? No * Can the patient safely return to the preadmission environment? Yes * Has this patient been hospitalized within the prior 30 days at any hospital? No External Providers External Provider: OTHER-OTHER Next Contact Date: 09/28/2018 Service Request Date: Service Type: Resolution: Reviewer: Comments: Last DP export: 09/28/18 3:05 Patient Name: KRISTIN CANELA Page 23345 at 1620 All edits/amendments must be made on the electronic document DICTATION DATE: 09/28/181619 ADJUNCT WRITING INSTRUCTOR: KOFFI 09/28/181619 RPT#: [id number] DC DATE: STATUS: ADM IN [facility] [address] [place] [address] END OF REPORT
[2018-09-12 14:03] LABS: BASOPHILS 0.1 % (0-2); EOSINOPHILS 0 % (0-7); HEMATOCRIT 39.3 % (42.0-54.0); HEMOGLOBIN 12.5 g/dL (13.5-17.5); IMMATURE GRANULOCYTES 0.3 % (0-5); LYMPHOCYTES 4.5 % (15-50); MCH 31.6 pg (26.0-34.0); MCHC 31.8 g/dL (31.0-37.0); MCV 99.5 fL (80.0-100.0); MEAN PLATELET VOLUME 10.8 fL (7.4-10.4); MONOCYTES 6.2 % (2-11); NEUTROPHILS 88.9 % (40-80); PLATELET COUNT 209 10x3/uL (130-400); RBC 3.95 10x6/uL (4.20-6.10); RDW 12.5 % (11.5-14.5); WBC 9.2 10x3/uL (4.8-10.8)
[2018-09-12 14:19] LABS: ALBUMIN 3.4 g/dL (3.4-5.0); ALKALINE PHOSPHATASE 114 U/L (46-116); ALT (SGPT) 18 U/L (10-68); BILIRUBIN - TOTAL 0.47 mg/dL (0.2-1.3); CALC OSMOLALITY 272 mosm/kg (275-300); CARBON DIOXIDE 39.2 mmol/L (21.0-32.0); CHLORIDE - SERUM 90 mmol/L (98-107); CREATININE - SERUM 0.6 mg/dL (0.6-1.3); GLUCOSE 120 mg/dL (74-106); PROTEIN - SERUM 7.8 g/dL (6.4-8.2); SODIUM 135 mmol/L (136-145); UREA NITROGEN 17 mg/dL (7-18); eGFR NON AFRICAN AMERICAN > 90 mL/min (90-120)
[2018-09-12 14:29] LABS: CKMB 1.8 U/L (0.0-3.6); CREATINE KINASE 49 UL (21-232)
[2018-09-12 14:31] LABS: TROPONIN-I < 0.017 ng/mL (0.000-0.060)
[2018-09-12 15:14] LABS: APPEARANCE HAZY (CLEAR); COLOR AMBER (YELLOW)
[2018-09-12 15:15] LABS: BILIRUBIN NEGATIVE (NEGATIVE); GLUCOSE NEGATIVE (NEGATIVE); KETONE LARGE mg/dL (NEGATIVE); NITRITE NEGATIVE (NEGATIVE); PROTEIN 2+ mg/dL (NEGATIVE); UROBILINOGEN NORMAL (NORMAL)
[2018-09-12 15:16] LABS: RED CELLS - URINE >50 /hpf (0-5); WHITE CELLS - URINE 0-5 /hpf (0-5)
[2018-09-12 15:17] LABS: AMORPHOUS SEDIMENT <1+ /lpf (NONE SEEN); BACTERIA FEW /hpf (NONE SEEN); EPITHELIAL CELLS OCC /hpf (0-5); MUCUS <1+ /lpf (NONE SEEN)
[2018-09-13] VITALS (47 sets, daily range): BP systolic 92–139; BP diastolic 51–94; BMI 24.8; BMI 24.7
[2018-09-13] MEDS ORDERED: ALDACTONE25 MG PO (02:32)
[2018-09-13] MEDS ORDERED: FERROUS SULFAT325 MG PO (02:34)
[2018-09-13] MEDS ORDERED: EPITOL200 MG PO (02:34)
[2018-09-13] MEDS ORDERED: NEURONTIN 300300 MG PO (02:35)
[2018-09-13] MEDS ORDERED: CENTRUM COMPLE1 EACH PO (02:36)
[2018-09-13] MEDS ORDERED: SYMBICORT 16010.2 GM INH (02:37)
[2018-09-13] MEDS ORDERED: LOW DOSE ASPIRI81 M1 PO (02:37)
[2018-09-13] MEDS ORDERED: IPRAT-ALBUT 0.5-3 ML UPD (02:38)
[2018-09-13 05:36] LABS: ALKALINE PHOSPHATASE 59 U/L (46-116); BILIRUBIN - TOTAL 0.33 mg/dL (0.2-1.3); CALC OSMOLALITY 281 mosm/kg (275-300); CARBON DIOXIDE 37.1 mmol/L (21.0-32.0); CHLORIDE - SERUM 101 mmol/L (98-107); CREATININE - SERUM 0.6 mg/dL (0.6-1.3); GLUCOSE 109 mg/dL (74-106); MAGNESIUM - SERUM 1.3 mg/dL (1.8-2.4); PHOSPHOROUS 1.6 mg/dL (2.5-4.9); SODIUM 141 mmol/L (136-145); UREA NITROGEN 13 mg/dL (7-18); eGFR NON AFRICAN AMERICAN > 90 mL/min (90-120)
[2018-09-13 05:54] LABS: BASOPHILS 0 % (0-2); EOSINOPHILS 0 % (0-7); IMMATURE GRANULOCYTES 0.1 % (0-5); LYMPHOCYTES 3.4 % (15-50); MCH 30.9 pg (26.0-34.0); MCHC 32.1 g/dL (31.0-37.0); MEAN PLATELET VOLUME 10.9 fL (7.4-10.4); MONOCYTES 4.2 % (2-11); NEUTROPHILS 92.3 % (40-80); PLATELET COUNT 174 10x3/uL (130-400); RDW 12.8 % (11.5-14.5); WBC 8.4 10x3/uL (4.8-10.8)
[2018-09-13 05:55] LABS: HEMATOCRIT 26.5 % (42.0-54.0); HEMOGLOBIN 8.5 g/dL (13.5-17.5); RBC 2.75 10x6/uL (4.20-6.10)
[2018-09-13 05:56] LABS: ALBUMIN 1.9 g/dL (3.4-5.0); ALT (SGPT) 12 U/L (10-68); MCV 96.4 fL (80.0-100.0); POTASSIUM - SERUM 3.5 mmol/L (3.5-5.1); PROTEIN - SERUM 5.1 g/dL (6.4-8.2)
[2018-09-13 15:52] LABS: INR 1.12 (0.85-1.17)
[2018-09-13 19:08] LABS: MAGNESIUM - SERUM 2.4 mg/dL (1.8-2.4); PHOSPHOROUS 3.4 mg/dL (2.5-4.9)
[2018-09-14] VITALS (25 sets, daily range): BP systolic 93–134; BP diastolic 57–88
[2018-09-14 04:34] LABS: BASOPHILS 0 % (0-2); EOSINOPHILS 0 % (0-7); IMMATURE GRANULOCYTES 0.3 % (0-5); LYMPHOCYTES 7.9 % (15-50); MCHC 32.7 g/dL (31.0-37.0); MCV 94.7 fL (80.0-100.0); MEAN PLATELET VOLUME 11.1 fL (7.4-10.4); MONOCYTES 8.2 % (2-11); NEUTROPHILS 83.6 % (40-80); PLATELET COUNT 205 10x3/uL (130-400); WBC 6.9 10x3/uL (4.8-10.8)
[2018-09-14 04:56] LABS: HEMATOCRIT 32.1 % (42.0-54.0); HEMOGLOBIN 10.5 g/dL (13.5-17.5); RBC 3.39 10x6/uL (4.20-6.10)
[2018-09-14 05:02] LABS: % SATURATION 36 % (15-55); IRON 39 ug/dl (35-150); TOTAL IRON BIND CAPACITY 108 ug/dl (260-445); UNSAT IRON BIND CAPACITY 69 ug/dl (150-375)
[2018-09-14 05:04] LABS: CALC OSMOLALITY 277 mosm/kg (275-300); CALCIUM 8.4 mg/dL (8.5-10.1); CARBON DIOXIDE 39.8 mmol/L (21.0-32.0); CHLORIDE - SERUM 98 mmol/L (98-107); CREATININE - SERUM 0.5 mg/dL (0.6-1.3); FERRITIN 283 ng/mL (3-244); GLUCOSE 137 mg/dL (74-106); POTASSIUM - SERUM 3.5 mmol/L (3.5-5.1); SODIUM 138 mmol/L (136-145); UREA NITROGEN 13 mg/dL (7-18); VANCOMYCIN - TROUGH 8.2 ug/mL (10.0-20.0); eGFR NON AFRICAN AMERICAN > 90 mL/min (90-120)
[2018-09-15] VITALS (24 sets, daily range): BP systolic 93–132; BP diastolic 55–77
[2018-09-15 04:34] LABS: BASOPHILS 0 % (0-2); EOSINOPHILS 0 % (0-7); HEMATOCRIT 31.4 % (42.0-54.0); HEMOGLOBIN 10.1 g/dL (13.5-17.5); IMMATURE GRANULOCYTES 0.4 % (0-5); LYMPHOCYTES 8.8 % (15-50); MCH 30.9 pg (26.0-34.0); MCHC 32.2 g/dL (31.0-37.0); MEAN PLATELET VOLUME 11.3 fL (7.4-10.4); MONOCYTES 9.1 % (2-11); NEUTROPHILS 81.7 % (40-80); PLATELET COUNT 230 10x3/uL (130-400); RBC 3.27 10x6/uL (4.20-6.10); RDW 13.1 % (11.5-14.5); WBC 7.1 10x3/uL (4.8-10.8)
[2018-09-15 04:53] LABS: CALC OSMOLALITY 281 mosm/kg (275-300); CALCIUM 8.3 mg/dL (8.5-10.1); CHLORIDE - SERUM 100 mmol/L (98-107); CREATININE - SERUM 0.5 mg/dL (0.6-1.3); GLUCOSE 119 mg/dL (74-106); PHOSPHOROUS 2.6 mg/dL (2.5-4.9); POTASSIUM - SERUM 4.3 mmol/L (3.5-5.1); SODIUM 140 mmol/L (136-145); eGFR NON AFRICAN AMERICAN > 90 mL/min (90-120)
[2018-09-15 05:04] LABS: UREA NITROGEN 17 mg/dL (7-18)
[2018-09-16] VITALS (24 sets, daily range): BP systolic 17–106; BP diastolic 49–66
[2018-09-16 04:33] LABS: BASOPHILS 0 % (0-2); EOSINOPHILS 0 % (0-7); HEMATOCRIT 31.7 % (42.0-54.0); HEMOGLOBIN 10.1 g/dL (13.5-17.5); IMMATURE GRANULOCYTES 0.9 % (0-5); LYMPHOCYTES 10.2 % (15-50); MCH 30.7 pg (26.0-34.0); MCHC 31.9 g/dL (31.0-37.0); MCV 96.4 fL (80.0-100.0); MEAN PLATELET VOLUME 10.9 fL (7.4-10.4); MONOCYTES 8.9 % (2-11); PLATELET COUNT 211 10x3/uL (130-400); RBC 3.29 10x6/uL (4.20-6.10); RDW 13.2 % (11.5-14.5); WBC 7.6 10x3/uL (4.8-10.8)
[2018-09-16 05:28] LABS: CALC OSMOLALITY 280 mosm/kg (275-300); CALCIUM 8.4 mg/dL (8.5-10.1); CARBON DIOXIDE 39.3 mmol/L (21.0-32.0); CHLORIDE - SERUM 100 mmol/L (98-107); CREATININE - SERUM 0.5 mg/dL (0.6-1.3); GLUCOSE 114 mg/dL (74-106); POTASSIUM - SERUM 4.2 mmol/L (3.5-5.1); SODIUM 139 mmol/L (136-145); UREA NITROGEN 18 mg/dL (7-18); eGFR NON AFRICAN AMERICAN > 90 mL/min (90-120)
[2018-09-17] VITALS (24 sets, daily range): BP systolic 91–137; BP diastolic 49–91
[2018-09-17 03:39] LABS: BASOPHILS 0 % (0-2); EOSINOPHILS 0 % (0-7); HEMATOCRIT 33.6 % (42.0-54.0); HEMOGLOBIN 10.8 g/dL (13.5-17.5); IMMATURE GRANULOCYTES 1.5 % (0-5); LYMPHOCYTES 7.6 % (15-50); MCH 31.1 pg (26.0-34.0); MCHC 32.1 g/dL (31.0-37.0); MCV 96.8 fL (80.0-100.0); MONOCYTES 6.2 % (2-11); NEUTROPHILS 84.7 % (40-80); PLATELET COUNT 198 10x3/uL (130-400); RBC 3.47 10x6/uL (4.20-6.10); RDW 13.2 % (11.5-14.5); WBC 8.5 10x3/uL (4.8-10.8)
[2018-09-17 03:52] LABS: CALC OSMOLALITY 280 mosm/kg (275-300); CALCIUM 8.4 mg/dL (8.5-10.1); CARBON DIOXIDE 38.6 mmol/L (21.0-32.0); CHLORIDE - SERUM 101 mmol/L (98-107); CREATININE - SERUM 0.5 mg/dL (0.6-1.3); GLUCOSE 119 mg/dL (74-106); PHOSPHOROUS 3.2 mg/dL (2.5-4.9); POTASSIUM - SERUM 4.1 mmol/L (3.5-5.1); SODIUM 139 mmol/L (136-145); UREA NITROGEN 18 mg/dL (7-18); eGFR NON AFRICAN AMERICAN > 90 mL/min (90-120)
[2018-09-18] VITALS (25 sets, daily range): BP systolic 87–143; BP diastolic 56–82; Ht 165.1 cm; Wt 58.2 kg
[2018-09-18 04:18] LABS: BASOPHILS 0 % (0-2); EOSINOPHILS 0.1 % (0-7); HEMATOCRIT 31.6 % (42.0-54.0); IMMATURE GRANULOCYTES 2.5 % (0-5); LYMPHOCYTES 10.6 % (15-50); MCH 30.5 pg (26.0-34.0); MCHC 31.6 g/dL (31.0-37.0); MCV 96.3 fL (80.0-100.0); MONOCYTES 7.6 % (2-11); NEUTROPHILS 79.2 % (40-80); PLATELET COUNT 208 10x3/uL (130-400); RBC 3.28 10x6/uL (4.20-6.10); RDW 13.3 % (11.5-14.5); WBC 6.7 10x3/uL (4.8-10.8)
[2018-09-18 04:28] LABS: CALC OSMOLALITY 282 mosm/kg (275-300); CALCIUM 8.3 mg/dL (8.5-10.1); CARBON DIOXIDE 38.4 mmol/L (21.0-32.0); CHLORIDE - SERUM 103 mmol/L (98-107); CREATININE - SERUM 0.4 mg/dL (0.6-1.3); GLUCOSE 112 mg/dL (74-106); MAGNESIUM - SERUM 1.8 mg/dL (1.8-2.4); PHOSPHOROUS 3.1 mg/dL (2.5-4.9); POTASSIUM - SERUM 3.8 mmol/L (3.5-5.1); SODIUM 141 mmol/L (136-145); UREA NITROGEN 16 mg/dL (7-18); eGFR NON AFRICAN AMERICAN > 90 mL/min (90-120)
[2018-09-19] VITALS (24 sets, daily range): BP systolic 74–170; BP diastolic 49–79
[2018-09-19 03:27] LABS: BASOPHILS 0 % (0-2); EOSINOPHILS 0 % (0-7); HEMATOCRIT 30.7 % (42.0-54.0); HEMOGLOBIN 9.8 g/dL (13.5-17.5); IMMATURE GRANULOCYTES 3.3 % (0-5); MCH 31.5 pg (26.0-34.0); MCHC 31.9 g/dL (31.0-37.0); MEAN PLATELET VOLUME 10.1 fL (7.4-10.4); MONOCYTES 4.9 % (2-11); NEUTROPHILS 84.8 % (40-80); PLATELET COUNT 191 10x3/uL (130-400); RBC 3.11 10x6/uL (4.20-6.10); RDW 13.5 % (11.5-14.5); WBC 6.7 10x3/uL (4.8-10.8)
[2018-09-19 03:28] LABS: MCV 98.7 fL (80.0-100.0)
[2018-09-19 03:51] LABS: ALBUMIN 2.2 g/dL (3.4-5.0); ALKALINE PHOSPHATASE 84 U/L (46-116); ALT (SGPT) 29 U/L (10-68); BILIRUBIN - TOTAL 0.24 mg/dL (0.2-1.3); CALC OSMOLALITY 283 mosm/kg (275-300); CALCIUM 8.2 mg/dL (8.5-10.1); CARBON DIOXIDE 37.8 mmol/L (21.0-32.0); CHLORIDE - SERUM 103 mmol/L (98-107); CREATININE - SERUM 0.5 mg/dL (0.6-1.3); GLUCOSE 121 mg/dL (74-106); POTASSIUM - SERUM 4.3 mmol/L (3.5-5.1); PROTEIN - SERUM 5.5 g/dL (6.4-8.2); SODIUM 141 mmol/L (136-145); UREA NITROGEN 19 mg/dL (7-18); eGFR NON AFRICAN AMERICAN > 90 mL/min (90-120)
[2018-09-19 03:55] LABS: PHOSPHOROUS 4.5 mg/dL (2.5-4.9)
[2018-09-20] VITALS (24 sets, daily range): BP systolic 85–172; BP diastolic 44–102
[2018-09-20 04:26] LABS: BASOPHILS 0 % (0-2); EOSINOPHILS 0 % (0-7); HEMATOCRIT 29.2 % (42.0-54.0); HEMOGLOBIN 9.1 g/dL (13.5-17.5); IMMATURE GRANULOCYTES 1.5 % (0-5); LYMPHOCYTES 4.9 % (15-50); MCH 30.7 pg (26.0-34.0); MCHC 31.2 g/dL (31.0-37.0); MCV 98.6 fL (80.0-100.0); MEAN PLATELET VOLUME 10.9 fL (7.4-10.4); MONOCYTES 5.9 % (2-11); NEUTROPHILS 87.7 % (40-80); PLATELET COUNT 198 10x3/uL (130-400); RBC 2.96 10x6/uL (4.20-6.10); RDW 13.5 % (11.5-14.5)
[2018-09-20 04:33] LABS: WBC 9.6 10x3/uL (4.8-10.8)
[2018-09-20 04:40] LABS: CALC OSMOLALITY 280 mosm/kg (275-300); CALCIUM 7.8 mg/dL (8.5-10.1); CARBON DIOXIDE 38.2 mmol/L (21.0-32.0); CHLORIDE - SERUM 101 mmol/L (98-107); CREATININE - SERUM 0.5 mg/dL (0.6-1.3); GLUCOSE 121 mg/dL (74-106); POTASSIUM - SERUM 4.1 mmol/L (3.5-5.1); SODIUM 138 mmol/L (136-145); UREA NITROGEN 23 mg/dL (7-18); eGFR NON AFRICAN AMERICAN > 90 mL/min (90-120)
[2018-09-21] VITALS (11 sets, daily range): BP systolic 114–149; BP diastolic 49–85
[2018-09-21 05:18] LABS: BASOPHILS 0 % (0-2); EOSINOPHILS 0 % (0-7); HEMATOCRIT 31.6 % (42.0-54.0); HEMOGLOBIN 10.2 g/dL (13.5-17.5); LYMPHOCYTES 8.8 % (15-50); MCH 31.6 pg (26.0-34.0); MCHC 32.3 g/dL (31.0-37.0); MCV 97.8 fL (80.0-100.0); MEAN PLATELET VOLUME 10.6 fL (7.4-10.4); MONOCYTES 6.9 % (2-11); NEUTROPHILS 83.3 % (40-80); PLATELET COUNT 187 10x3/uL (130-400); RBC 3.23 10x6/uL (4.20-6.10); RDW 13.2 % (11.5-14.5); WBC 7.6 10x3/uL (4.8-10.8)
[2018-09-21 05:27] LABS: CALC OSMOLALITY 275 mosm/kg (275-300); CALCIUM 8.5 mg/dL (8.5-10.1); CARBON DIOXIDE 31.4 mmol/L (21.0-32.0); CHLORIDE - SERUM 99 mmol/L (98-107); CREATININE - SERUM 0.6 mg/dL (0.6-1.3); GLUCOSE 100 mg/dL (74-106); SODIUM 137 mmol/L (136-145); UREA NITROGEN 18 mg/dL (7-18); eGFR NON AFRICAN AMERICAN > 90 mL/min (90-120)
[2018-09-21 05:34] LABS: POTASSIUM - SERUM 3.2 mmol/L (3.5-5.1)
[2018-09-22 00:47] VITALS: BP 138/64
[2018-09-22 04:00] VITALS: BP 106/57
[2018-09-22 05:34] LABS: BASOPHILS 0 % (0-2); EOSINOPHILS 0 % (0-7); HEMATOCRIT 31.5 % (42.0-54.0); HEMOGLOBIN 10.6 g/dL (13.5-17.5); IMMATURE GRANULOCYTES 1.3 % (0-5); LYMPHOCYTES 11.8 % (15-50); MCH 31.9 pg (26.0-34.0); MCHC 33.7 g/dL (31.0-37.0); MEAN PLATELET VOLUME 11.3 fL (7.4-10.4); MONOCYTES 4.3 % (2-11); NEUTROPHILS 82.6 % (40-80); PLATELET COUNT 215 10x3/uL (130-400); RBC 3.32 10x6/uL (4.20-6.10); RDW 13.2 % (11.5-14.5)
[2018-09-22 05:56] LABS: CALC OSMOLALITY 274 mosm/kg (275-300); CALCIUM 8.5 mg/dL (8.5-10.1); CARBON DIOXIDE 28.1 mmol/L (21.0-32.0); CHLORIDE - SERUM 100 mmol/L (98-107); CREATININE - SERUM 0.5 mg/dL (0.6-1.3); GLUCOSE 110 mg/dL (74-106); POTASSIUM - SERUM 3.1 mmol/L (3.5-5.1); SODIUM 136 mmol/L (136-145); UREA NITROGEN 17 mg/dL (7-18); eGFR NON AFRICAN AMERICAN > 90 mL/min (90-120)
[2018-09-22 06:06] LABS: MCV 94.9 fL (80.0-100.0); WBC 4.7 10x3/uL (4.8-10.8)
[2018-09-22 08:16] VITALS: BP 123/58
[2018-09-22 11:37] VITALS: BP 108/56
[2018-09-22 15:30] VITALS: BP 112/58
[2018-09-22 20:00] VITALS: BP 105/64
[2018-09-23] VITALS: BP 100/53
[2018-09-23 04:00] VITALS: BP 104/51
[2018-09-23 05:55] LABS: BASOPHILS 0 % (0-2); EOSINOPHILS 0 % (0-7); HEMATOCRIT 32.3 % (42.0-54.0); HEMOGLOBIN 10.6 g/dL (13.5-17.5); IMMATURE GRANULOCYTES 0.4 % (0-5); LYMPHOCYTES 9.5 % (15-50); MCH 31.2 pg (26.0-34.0); MCHC 32.8 g/dL (31.0-37.0); MEAN PLATELET VOLUME 11.1 fL (7.4-10.4); MONOCYTES 6.5 % (2-11); NEUTROPHILS 83.6 % (40-80); PLATELET COUNT 217 10x3/uL (130-400); RDW 13.4 % (11.5-14.5)
[2018-09-23 05:56] LABS: WBC 7.4 10x3/uL (4.8-10.8)
[2018-09-23 06:30] LABS: ALBUMIN 2.7 g/dL (3.4-5.0); ALKALINE PHOSPHATASE 68 U/L (46-116); ALT (SGPT) 26 U/L (10-68); BILIRUBIN - TOTAL 0.43 mg/dL (0.2-1.3); CALC OSMOLALITY 281 mosm/kg (275-300); CALCIUM 8.5 mg/dL (8.5-10.1); CARBON DIOXIDE 28.1 mmol/L (21.0-32.0); CHLORIDE - SERUM 105 mmol/L (98-107); CREATININE - SERUM 0.6 mg/dL (0.6-1.3); GLUCOSE 106 mg/dL (74-106); PHOSPHOROUS 2.5 mg/dL (2.5-4.9); POTASSIUM - SERUM 3.4 mmol/L (3.5-5.1); PROTEIN - SERUM 6.2 g/dL (6.4-8.2); SODIUM 140 mmol/L (136-145); UREA NITROGEN 20 mg/dL (7-18); eGFR NON AFRICAN AMERICAN > 90 mL/min (90-120)
[2018-09-23 08:05] VITALS: BP 100/54
[2018-09-23 11:52] VITALS: BP 100/77
[2018-09-23 14:21] VITALS: BP 108/60
[2018-09-23 21:08] VITALS: BP 89/56
[2018-09-24] VITALS: BP 100/53
[2018-09-24 04:00] VITALS: BP 90/45
[2018-09-24 06:33] LABS: BASOPHILS 0 % (0-2); EOSINOPHILS 0.5 % (0-7); HEMATOCRIT 30.5 % (42.0-54.0); HEMOGLOBIN 9.7 g/dL (13.5-17.5); IMMATURE GRANULOCYTES 0.9 % (0-5); LYMPHOCYTES 21.9 % (15-50); MCH 30.6 pg (26.0-34.0); MCHC 31.8 g/dL (31.0-37.0); MCV 96.2 fL (80.0-100.0); MEAN PLATELET VOLUME 10.9 fL (7.4-10.4); MONOCYTES 12.9 % (2-11); NEUTROPHILS 63.8 % (40-80); PLATELET COUNT 212 10x3/uL (130-400); RBC 3.17 10x6/uL (4.20-6.10); RDW 13.7 % (11.5-14.5); WBC 5.7 10x3/uL (4.8-10.8)
[2018-09-24 07:00] LABS: ALBUMIN 2.5 g/dL (3.4-5.0); ALKALINE PHOSPHATASE 62 U/L (46-116); ALT (SGPT) 25 U/L (10-68); BILIRUBIN - TOTAL 0.46 mg/dL (0.2-1.3); CALC OSMOLALITY 287 mosm/kg (275-300); CARBON DIOXIDE 32.2 mmol/L (21.0-32.0); CHLORIDE - SERUM 108 mmol/L (98-107); CREATININE - SERUM 0.5 mg/dL (0.6-1.3); GLUCOSE 90 mg/dL (74-106); PHOSPHOROUS 2.7 mg/dL (2.5-4.9); PROTEIN - SERUM 5.7 g/dL (6.4-8.2); SODIUM 143 mmol/L (136-145); UREA NITROGEN 21 mg/dL (7-18); eGFR NON AFRICAN AMERICAN > 90 mL/min (90-120)
[2018-09-24 08:34] VITALS: BP 101/52
[2018-09-24 12:05] VITALS: BP 118/66
[2018-09-24 16:55] VITALS: BP 101/58
[2018-09-24 20:00] VITALS: BP 96/54
[2018-09-25] VITALS: BP 98/56
[2018-09-25 04:00] VITALS: BP 98/54
[2018-09-25 06:14] LABS: BASOPHILS 0 % (0-2); EOSINOPHILS 0.6 % (0-7); HEMOGLOBIN 9.6 g/dL (13.5-17.5); IMMATURE GRANULOCYTES 0.4 % (0-5); LYMPHOCYTES 20.8 % (15-50); MCV 96.8 fL (80.0-100.0); MEAN PLATELET VOLUME 10.5 fL (7.4-10.4); MONOCYTES 10.9 % (2-11); NEUTROPHILS 67.3 % (40-80); PLATELET COUNT 178 10x3/uL (130-400); RDW 13.8 % (11.5-14.5); WBC 5.4 10x3/uL (4.8-10.8)
[2018-09-25 06:33] LABS: ALBUMIN 2.5 g/dL (3.4-5.0); ALKALINE PHOSPHATASE 66 U/L (46-116); ALT (SGPT) 22 U/L (10-68); BILIRUBIN - TOTAL 0.34 mg/dL (0.2-1.3); CALC OSMOLALITY 286 mosm/kg (275-300); CALCIUM 7.9 mg/dL (8.5-10.1); CARBON DIOXIDE 32.3 mmol/L (21.0-32.0); CHLORIDE - SERUM 108 mmol/L (98-107); CREATININE - SERUM 0.5 mg/dL (0.6-1.3); GLUCOSE 94 mg/dL (74-106); PHOSPHOROUS 2.5 mg/dL (2.5-4.9); POTASSIUM - SERUM 3.2 mmol/L (3.5-5.1); PROTEIN - SERUM 5.3 g/dL (6.4-8.2); SODIUM 143 mmol/L (136-145); UREA NITROGEN 17 mg/dL (7-18); eGFR NON AFRICAN AMERICAN > 90 mL/min (90-120)
[2018-09-25 09:24] VITALS: BP 82/44
[2018-09-25 13:28] VITALS: BP 96/47
[2018-09-25 16:47] VITALS: BP 99/49
[2018-09-25 20:00] VITALS: BP 95/41
[2018-09-26 04:00] VITALS: BP 100/50
[2018-09-26 06:51] LABS: BASOPHILS 0 % (0-2); EOSINOPHILS 0.9 % (0-7); HEMOGLOBIN 9.5 g/dL (13.5-17.5); IMMATURE GRANULOCYTES 0.4 % (0-5); LYMPHOCYTES 19.6 % (15-50); MCH 30.9 pg (26.0-34.0); MCHC 31.7 g/dL (31.0-37.0); MCV 97.7 fL (80.0-100.0); MEAN PLATELET VOLUME 10.5 fL (7.4-10.4); MONOCYTES 10.7 % (2-11); NEUTROPHILS 68.4 % (40-80); PLATELET COUNT 173 10x3/uL (130-400); RBC 3.07 10x6/uL (4.20-6.10); WBC 5.4 10x3/uL (4.8-10.8)
[2018-09-26 07:14] LABS: ALBUMIN 2.4 g/dL (3.4-5.0); ALKALINE PHOSPHATASE 73 U/L (46-116); ALT (SGPT) 20 U/L (10-68); BILIRUBIN - TOTAL 0.36 mg/dL (0.2-1.3); CALC OSMOLALITY 285 mosm/kg (275-300); CALCIUM 7.9 mg/dL (8.5-10.1); CARBON DIOXIDE 34.3 mmol/L (21.0-32.0); CHLORIDE - SERUM 107 mmol/L (98-107); CREATININE - SERUM 0.7 mg/dL (0.6-1.3); GLUCOSE 94 mg/dL (74-106); PHOSPHOROUS 2.2 mg/dL (2.5-4.9); POTASSIUM - SERUM 3.3 mmol/L (3.5-5.1); PROTEIN - SERUM 5.4 g/dL (6.4-8.2); SODIUM 143 mmol/L (136-145); UREA NITROGEN 14 mg/dL (7-18); eGFR NON AFRICAN AMERICAN > 90 mL/min (90-120)
[2018-09-26 10:56] VITALS: BP 94/53
[2018-09-26 14:38] VITALS: BP 112/52
[2018-09-26 16:55] VITALS: BP 97/53
[2018-09-26 20:00] VITALS: BP 113/58
[2018-09-27 04:00] VITALS: BP 94/44
[2018-09-27 06:02] LABS: BASOPHILS 0.2 % (0-2); EOSINOPHILS 0.9 % (0-7); HEMATOCRIT 29.6 % (42.0-54.0); HEMOGLOBIN 9.2 g/dL (13.5-17.5); IMMATURE GRANULOCYTES 0.6 % (0-5); LYMPHOCYTES 21.2 % (15-50); MCH 30.5 pg (26.0-34.0); MCHC 31.1 g/dL (31.0-37.0); MEAN PLATELET VOLUME 10.4 fL (7.4-10.4); MONOCYTES 10.2 % (2-11); NEUTROPHILS 66.9 % (40-80); PLATELET COUNT 164 10x3/uL (130-400); RBC 3.02 10x6/uL (4.20-6.10); RDW 14.3 % (11.5-14.5); WBC 5.3 10x3/uL (4.8-10.8)
[2018-09-27 06:30] LABS: ALBUMIN 2.4 g/dL (3.4-5.0); ALKALINE PHOSPHATASE 76 U/L (46-116); ALT (SGPT) 15 U/L (10-68); BILIRUBIN - TOTAL 0.31 mg/dL (0.2-1.3); CALC OSMOLALITY 286 mosm/kg (275-300); CALCIUM 7.6 mg/dL (8.5-10.1); CARBON DIOXIDE 34.2 mmol/L (21.0-32.0); CHLORIDE - SERUM 107 mmol/L (98-107); CREATININE - SERUM 0.6 mg/dL (0.6-1.3); GLUCOSE 96 mg/dL (74-106); PHOSPHOROUS 2.4 mg/dL (2.5-4.9); PROTEIN - SERUM 5.3 g/dL (6.4-8.2); SODIUM 144 mmol/L (136-145); UREA NITROGEN 13 mg/dL (7-18); eGFR NON AFRICAN AMERICAN > 90 mL/min (90-120)
[2018-09-27 06:45] LABS: POTASSIUM - SERUM 2.8 mmol/L (3.5-5.1)
[2018-09-27 08:47] VITALS: BP 118/45
[2018-09-27 11:48] VITALS: BP 109/54
[2018-09-27 14:58] VITALS: BP 110/53
[2018-09-27 17:07] VITALS: BP 118/69
[2018-09-27 21:41] VITALS: BP 112/66
[2018-09-28 01:16] VITALS: BP 125/56
[2018-09-28 05:33] LABS: BASOPHILS 0 % (0-2); EOSINOPHILS 0.7 % (0-7); HEMATOCRIT 32.9 % (42.0-54.0); HEMOGLOBIN 10.6 g/dL (13.5-17.5); IMMATURE GRANULOCYTES 0.3 % (0-5); LYMPHOCYTES 27.8 % (15-50); MCH 31.5 pg (26.0-34.0); MCHC 32.2 g/dL (31.0-37.0); MCV 97.9 fL (80.0-100.0); MEAN PLATELET VOLUME 10.6 fL (7.4-10.4); MONOCYTES 8.5 % (2-11); NEUTROPHILS 62.7 % (40-80); PLATELET COUNT 167 10x3/uL (130-400); RBC 3.36 10x6/uL (4.20-6.10); RDW 14.4 % (11.5-14.5); WBC 5.8 10x3/uL (4.8-10.8)
[2018-09-28 05:50] VITALS: BP 11/62
[2018-09-28 06:20] LABS: CALC OSMOLALITY 278 mosm/kg (275-300); CALCIUM 8.6 mg/dL (8.5-10.1); CARBON DIOXIDE 32.8 mmol/L (21.0-32.0); CHLORIDE - SERUM 102 mmol/L (98-107); CREATININE - SERUM 0.5 mg/dL (0.6-1.3); GLUCOSE 90 mg/dL (74-106); SODIUM 140 mmol/L (136-145); UREA NITROGEN 12 mg/dL (7-18); eGFR NON AFRICAN AMERICAN > 90 mL/min (90-120)
[2018-09-28 06:24] LABS: POTASSIUM - SERUM 3.4 mmol/L (3.5-5.1)
[2018-09-28 09:17] VITALS: BP 130/73
[2018-09-28 11:12] VITALS: BP 139/86
[2018-09-28] MEDS ORDERED: Nystatin Oral Susp [ PO (11:53)
[2018-09-28] MEDS ORDERED: XOPENEX 0.0.63 MG/3 INH (11:53)
[2018-09-28] MEDS ORDERED: BROVANA15 MCG/2 M INH (11:54)
[2018-09-28] MEDS ORDERED: PREDNISONE20 MG PO (11:54)
[2018-09-28 15:13] VITALS: BP 133/78
[2018-09-29] VITALS: BP 113/57
[2018-09-29 01:05] VITALS: BP 120/70
[2018-09-29 04:00] VITALS: BP 142/73
[2018-09-29 06:08] LABS: BASOPHILS 0.2 % (0-2); EOSINOPHILS 0.6 % (0-7); HEMATOCRIT 29.8 % (42.0-54.0); HEMOGLOBIN 9.5 g/dL (13.5-17.5); IMMATURE GRANULOCYTES 0.4 % (0-5); LYMPHOCYTES 23.1 % (15-50); MCHC 31.9 g/dL (31.0-37.0); MCV 97.4 fL (80.0-100.0); MEAN PLATELET VOLUME 11.2 fL (7.4-10.4); MONOCYTES 12.8 % (2-11); NEUTROPHILS 62.9 % (40-80); PLATELET COUNT 161 10x3/uL (130-400); RBC 3.06 10x6/uL (4.20-6.10); RDW 14.5 % (11.5-14.5); WBC 5.2 10x3/uL (4.8-10.8)
[2018-09-29 06:32] LABS: CALC OSMOLALITY 277 mosm/kg (275-300); CALCIUM 8.2 mg/dL (8.5-10.1); CARBON DIOXIDE 36.6 mmol/L (21.0-32.0); CHLORIDE - SERUM 102 mmol/L (98-107); CREATININE - SERUM 0.5 mg/dL (0.6-1.3); GLUCOSE 89 mg/dL (74-106); POTASSIUM - SERUM 3.7 mmol/L (3.5-5.1); SODIUM 140 mmol/L (136-145); UREA NITROGEN 13 mg/dL (7-18); eGFR NON AFRICAN AMERICAN > 90 mL/min (90-120)
[2018-09-29 08:26] VITALS: BP 125/70
[2018-09-29 10:59] VITALS: BP 96/48
[2018-09-29 18:43] VITALS: BP 110/52
[2018-09-30 06:40] LABS: BASOPHILS 0 % (0-2); EOSINOPHILS 1.2 % (0-7); HEMATOCRIT 29.5 % (42.0-54.0); HEMOGLOBIN 9.6 g/dL (13.5-17.5); IMMATURE GRANULOCYTES 0.2 % (0-5); LYMPHOCYTES 27.8 % (15-50); MCH 31.2 pg (26.0-34.0); MCHC 32.5 g/dL (31.0-37.0); MCV 95.8 fL (80.0-100.0); MEAN PLATELET VOLUME 11.4 fL (7.4-10.4); MONOCYTES 10.8 % (2-11); PLATELET COUNT 155 10x3/uL (130-400); RBC 3.08 10x6/uL (4.20-6.10); RDW 14.3 % (11.5-14.5); WBC 4.8 10x3/uL (4.8-10.8)
[2018-09-30 06:51] LABS: CALCIUM 8.1 mg/dL (8.5-10.1); CARBON DIOXIDE 35.7 mmol/L (21.0-32.0); CHLORIDE - SERUM 100 mmol/L (98-107); CREATININE - SERUM 0.5 mg/dL (0.6-1.3); GLUCOSE 84 mg/dL (74-106); SODIUM 138 mmol/L (136-145); eGFR NON AFRICAN AMERICAN > 90 mL/min (90-120)
[2018-09-30 06:52] LABS: CALC OSMOLALITY 273 mosm/kg (275-300); POTASSIUM - SERUM 3.1 mmol/L (3.5-5.1); UREA NITROGEN 9 mg/dL (7-18)
[2018-09-30 08:21] VITALS: BP 125/64
[2018-09-30 11:03] VITALS: BP 112/64
== END 2018-09-30 16:02 | disposition home or self-care (01) | DRG 870 ==
LOC: D.ER 12:51 → D.EDHOLD 14:50 → D.M2 14:50 → D.ICU 14:50 → D.M2 09-21 17:35
PROVIDERS: Emergency Medicine; Family Medicine; Internal Medicine Nephrology; Internal Medicine Pulmonary Disease
PROC: 5A1955Z Respiratory Ventilation, Greater than 96 Consecutive Hours (ICD-10-PCS; principal; 2018-09-12)
PROC: 0BH17EZ Insertion of Endotracheal Airway into Trachea, Via Natural or Artificial Opening (ICD-10-PCS; 2018-09-12)
PROC: 05H533Z Insertion of Infusion Device into Right Subclavian Vein, Percutaneous Approach (ICD-10-PCS; 2018-09-18)
DX: A41.9 Sepsis, unspecified organism (principal); J96.21 Acute and chronic respiratory failure with hypoxia; E43 Unspecified severe protein-calorie malnutrition; J15.0 Pneumonia due to Klebsiella pneumoniae; J15.6 Pneumonia due to other Gram-negative bacteria; J96.22 Acute and chronic respiratory failure with hypercapnia; N39.0 Urinary tract infection, site not specified; F17.203 Nicotine dependence unspecified, with withdrawal; J43.9 Emphysema, unspecified; N40.0 Benign prostatic hyperplasia without lower urinary tract symptoms; I10 Essential (primary) hypertension; G62.9 Polyneuropathy, unspecified; D50.9 Iron deficiency anemia, unspecified; K21.9 Gastro-esophageal reflux disease without esophagitis; J30.9 Allergic rhinitis, unspecified; I48.91 Unspecified atrial fibrillation; R53.81 Other malaise; I87.2 Venous insufficiency (chronic) (peripheral); G47.34 Idiopathic sleep related nonobstructive alveolar hypoventilation; B37.9 Candidiasis, unspecified